=== PATIENT | female | born 1935 | race Caucasian/White ===

== ENCOUNTER → 2017-08-05 | Outpatient (CLI) | payer MEDICARE ==
[~2017-08-05] MED LIST: CELEBREX400 MG PO; HYDROCODON-ACE1 EA10 PO; LEVAQUIN500 MG PO; NEUPRO1 EAC1 TD; NEXIUM10 MG; OMEPRAZOLE40 MG PO; TEMAZEPAM15 MG PO; VIRTUSSIN AC SYRUP PO
--- NOTE | 2017-08-05 15:04 | Diagnostic Imaging Report ---
PROCEDURE:US RETROPERITONEAL ( KIDNEY ). COMPARISON:Renal ultrasound 11/08/2009 INDICATIONS:Microscopic Hematuria TECHNIQUE: Penaloza-scale and color sonographic images of the bilateral kidneys and bladder where obtained in transverse and longitudinal planes. FINDINGS: RIGHT KIDNEY: 4.9 x 2.9 x 2.4 cm, cortex 1.1 cm Cysts: None Solid masses: None Stones: None Hydronephrosis: None Echogenicity: Increased LEFT KIDNEY: 4.9 x 3.9 x 2.9 cm, cortex 1.4 cm Cysts: None Solid masses: None Stones: None Hydronephrosis: None Echogenicity: Increased Bladder: Trace debris within the dependent aspect. Additional findings: 2.3 x 1.8 x 1.9 cm hypoechoic lesion in the right hepatic lobe. This appears less anechoic than the previous 1.9 x 1.7 x 1.9 cm lesion noted in 2009. CONCLUSION: 1. Small mildly echogenic kidneys reflecting medical renal disease. 2. Trace nonspecific debris in the bladder. Recommend correlation with urinalysis. 3. Right hepatic 2.3 cm lesion is indeterminate. If renal function permits, recommend further evaluation with CT without and with contrast (liver mass protocol) for further evaluation. Consider addition of urographic phase if hematuria persists. Otherwise, recommend abdominal MRI without contrast. Dictated by: Jayro Deleon M.D. on 08/05/2017 at 15:05 Electronically approved by: Jayro Deleon M.D. on 08/05/2017 at 15:05
== END ==
LOC: US 13:28
PROVIDERS: ATTEND Urology
DX: R31.9 Hematuria, unspecified (principal)
CPT/HCPCS: 76770